=== PATIENT | female | born 1955 | race Caucasian/White ===

== ENCOUNTER 2016-07-28 14:46 | Inpatient (IN) | payer MEDICARE, MEDICAID ==
[~2016-07-28 14:46] MED LIST: ACETAMINOPHEN650 M3 PO; ACETAMINOPHEN650 M4 PO; ALBUTEROL0.63 MG/1 AERO NEB; ALLERGY25 M2 PO; AMIODARONE HCL200 M1 PO; AMIODARONE HCL400 M1 PO; ATIVAN0.5 M1 PO; BACTROBAN15 G1 TP; BENADRYL25 M3 PO; CHLORASEPTIC T1 EACH MT; COUMADIN PO; COUMADIN3 M1 PO; COUMADIN4 M1 PO; COUMADIN5 M2 PO; DAILY VALUE1 EAC1 PO; HYDROCODON-ACE1 EACH PO; HYDROCORTISONE30 G6 APL; IBUPROFEN400 MG PO; LASIX40 MG PO; LEVAQUIN250 M3 PO; LEVAQUIN500 MG PO; LEVAQUIN750 MG; LEVOFLOXACIN250 M1 PO; LEVOTHYROXINE112 MC3 PO; LEXAPRO10 M2 PO; MEGACE400 MG/11 PO; MIDODRINE HCL5 M1 PO; MUPIROCIN22 G2 TP; NORCO 7.5-3251 EACH PO; NYSTATIN1 EA10 TP; NYSTATIN100000 UNI PO; ONDANSETRON ODT4 M1 SL; PERCOCET 5/3251 TAB PO; PROCRIT20000 UNIT IJ; PROMETHAZINE HC25 M3 PO; PROTONIX40 M2; PROTONIX40 M2 PO; RENVELA800 M1 PO; SM SORE THROAT MM; THERA-M CAPLET1 EAC1 PO; VITAMIN D-32000 UNI3 PO
[2016-07-28 16:55] LABS: EOS % 1.6 % (0-7); EOSINOPHIL ABSOLUTE COUNT 0.1 tho/cmm (0.0-0.7); HCT-HEMATOCRIT 30.9 % (34.0-49.0); LYMPH % 34.4 % (20-45); LYMPH ABSOLUTE COUNT 1.5 tho/cmm (0.8-4.5); MCH (MEAN CORPUSCULAR HGB) 31.4 pg (28.0-32.0); MCHC MEAN CORPUSCULAR HGB CONC 32.4 % (32.0-36.0); MCV (MEAN CELL VOLUME) 97.2 fl (82.0-96.0); MEAN PLATELET VOLUME 13.2 cmc (9.4-12.4); MONO % 7.6 % (0-12); MONOCYTE ABSOLUTE COUNT 0.3 tho/cmm (0.0-1.2); NEUTROPHIL ABSOLUTE COUNT 2.5 tho/cmm (1.6-8.0); NEUTROPHIL-AUTOMATED 2.5 tho/cmm (1.6-8.0); NEUTROPHILS % 56.4 % (40-80); PLATELET COUNT 146 tho/cmm (150-450); RED BLOOD COUNT 3.18 mil/cmm (4.00-5.20); RED CELL DISTRIBUTION WIDTH 13.8 % (12.4-16.4); WHITE BLOOD COUNT 4.5 tho/cmm (4.0-10.0)
[2016-07-28 17:03] LABS: INR 2.3 INR (0.9-1.1); PROTHROMBIN TIME 27.4 SECONDS (9.0-13.6)
[2016-07-28 17:12] LABS: ALB/GLOB RATIO 0.8 (0.8-2.0); ALBUMIN 3.3 g/dl (3.5-5.0); ALKALINE PHOSPHATASE 116 U/L (33-138); ANION GAP 12 mmol/L (0-20); AST/SGOT 14 U/L (10-40); BILIRUBIN,TOTAL 0.8 mg/dl (0-1.5); BLOOD UREA NITROGEN 11 mg/dl (6-24); CALCIUM 8.9 mg/dl (8.5-10.5); CARBON DIOXIDE-VENOUS 28 mmol/L (22-32); CHLORIDE 101 mmol/l (96-110); GLUCOSE 89 mg/dL (70-110); POTASSIUM 3.8 mmol/L (3.7-5.1); SODIUM 137 mmol/L (135-145)
[2016-07-28 17:40] LABS: ALT/SGPT <10 U/L (12-78); CREATININE 3.95 mg/dl (0.50-1.10); eGFR VALUE FOR BLACK 13 mL/Min
[2016-07-29 05:27] LABS: ALBUMIN 2.7 g/dl (3.5-5.0); ANION GAP 12 mmol/L (0-20); BLOOD UREA NITROGEN 13 mg/dl (6-24); CARBON DIOXIDE-VENOUS 30 mmol/L (22-32); CHLORIDE 101 mmol/l (96-110); CREATININE 4.46 mg/dl (0.50-1.10); GLUCOSE 94 mg/dL (70-110); MAGNESIUM 1.7 mg/dl (1.3-2.6); PHOSPHOROUS 3.4 mg/dl (2.5-4.9); POTASSIUM 3.3 mmol/L (3.7-5.1); SODIUM 140 mmol/L (135-145); eGFR VALUE FOR BLACK 12 mL/Min
--- NOTE | 2016-07-29 13:55 | NUR ---
Virtual Nurse Note: Rounding done with patient. No concerns at this time Kacey Amin RN
[2016-07-29 13:57] LABS: C-REACTIVE PROTEIN 3.6 mg/dl (0-0.9)
[2016-07-29 14:47] LABS: PROCALCITONIN 0.72 ng/ml (0.05-0.09)
[2016-07-29 15:11] LABS: PROTHROMBIN TIME 20.3 SECONDS (9.0-13.6)
[2016-07-29 15:13] LABS: INR 1.7 INR (0.9-1.1)
[2016-09-10] MEDS ORDERED: ASPIRIN EC81 MG PO (08:59)
[2016-10-08] MEDS ORDERED: MIDODRINE HCL5 M1 PO (09:05)
[2016-11-26] MEDS ORDERED: COUMADIN3 M1 PO (11:38)
[2016-12-03] MEDS ORDERED: AMIODARONE HCL100 M1 PO (23:15)
== END 2016-07-29 18:10 | disposition other institution (70) | DRG 871 ==
LOC: 5WD 14:46
PROVIDERS: Internal Medicine; Internal Medicine Cardiovascular Disease; Internal Medicine Infectious Disease; Internal Medicine Nephrology; ADMIT Internal Medicine
PROC: 05HY33Z Insertion of Infusion Device into Upper Vein, Percutaneous Approach (ICD-10-PCS; principal; 2016-07-28)
DX: R78.81 Bacteremia (principal); N18.6 End stage renal disease; Z68.42 Body mass index [BMI] 45.0-49.9, adult; A49.02 Methicillin resistant Staphylococcus aureus infection, unspecified site; D63.1 Anemia in chronic kidney disease; E03.9 Hypothyroidism, unspecified; E66.01 Morbid (severe) obesity due to excess calories; E87.6 Hypokalemia; F32.9 Major depressive disorder, single episode, unspecified; F41.9 Anxiety disorder, unspecified; I87.2 Venous insufficiency (chronic) (peripheral); I87.8 Other specified disorders of veins; K21.9 Gastro-esophageal reflux disease without esophagitis; L98.8 Other specified disorders of the skin and subcutaneous tissue; S81.801A Unspecified open wound, right lower leg, initial encounter; Z79.01 Long term (current) use of anticoagulants; Z99.2 Dependence on renal dialysis
CPT/HCPCS: C1751; J0885; J2250; J3010; J3370